=== PATIENT | female | born 1975 | race American Indian/Alaskan Native ===

== ENCOUNTER 2017-03-26 14:21 | Emergency (ER) | payer MEDICAID ==
[2017-03-26 14:37] VITALS: TEMP 98; BMI 32.4
[2017-03-26] MEDS ORDERED: Labetalol 5 mg/ml Inj 20ML IV STA ×2 (14:52→15:54)
--- NOTE | 2017-03-26 15:00 | ED PDOC ---
Arrival/HPI - General Time Seen by Provider: 03/26/17 14:34 Historian: Patient - History of Present Illness Narrative History of Present Illness (Text): 03/26/17 14:54 This 41 yo s/p x 8 days ago, presents to this ED c/o b/l leg swelling x 7 days. Patient stated she develioped a chest pain x 3 days ago, described as pressure. Patient saw her [employer] this morning, and she was found to be hypertensive. Time/Duration: Other (see HPI) Context: Home Past Medical History - Provider Review Nursing Documentation Reviewed: Yes - Infectious Disease Hx of Infectious Diseases: None - Tetanus Immunization Tetanus Immunization: Unknown - Cardiac Hx Cardiac Disorders: No - Pulmonary Hx Asthma: Yes - Neurological Hx Neurological Disorder: No - HEENT Hx HEENT Disorder: No - Renal Hx Renal Disorder: No - Endocrine/Metabolic Hx Endocrine Disorders: No - Hematological/Oncological Hx Blood Disorders: No - Integumentary Hx Dermatological Disorder: No - Musculoskeletal/Rheumatological Hx Musculoskeletal Disorders: No - Gastrointestinal Hx Gastrointestinal Disorders: No - Genitourinary/Gynecological Hx Genitourinary Disorders: No - Psychiatric Hx Psychophysiologic Disorder: No Hx Depression: No Hx Emotional Abuse: No Hx Physical Abuse: No Hx Substance Use: No - Past Surgical History Past Surgical History: Non-Contributing - Surgical History Other/Comment: nasal polyps - Anesthesia Hx Anesthesia: Yes Hx Anesthesia Reactions: No Hx Malignant Hyperthermia: No - Suicidal Assessment Feels Threatened In Home Enviroment: No Family/Social History - Physician Review Nursing Documentation Reviewed: Yes Family/Social History: No Known Family HX Smoking Status: Light Smoker < 10 Cigarettes Daily Hx Alcohol Use: Yes Hx Substance Use: No Hx Substance Use Treatment: No Allergies/Home Meds Allergies/Adverse Reactions: Allergies No Known Allergies Allergy (Verified 03/26/17 15:45) Home Medications: Home Meds Medication Instructions Recorded Confirmed Cephalexin [cephalexin] 500 mg PO QID 03/26/17 03/26/17 Ferrous Sulfate [Iron] 325 mg PO DAILY 03/26/17 03/26/17 Ibuprofen [Motrin] 600 mg PO PRN PRN 03/26/17 03/26/17 oxyCODONE [oxyCODONE Immediate 5 mg PO PRN PRN 03/26/17 03/26/17 Release Tab] Review of Systems - Review of Systems Constitutional: Normal. absent: Fatigue, Weight Change, Fevers Eyes: Normal ENT: Normal Respiratory: SOB. absent: Cough, Sputum, Wheezing Cardiovascular: Chest Pain, Edema, JOHNSON. absent: Palpitations, Calf Pain, Orthopnea, Syncope Gastrointestinal: Normal. absent: Abdominal Pain, Nausea, Vomiting Genitourinary Female: Normal. absent: Dysuria, Frequency, Hematuria Musculoskeletal: Other (B/L lower leg edema, +2). absent: Arthralgias, Back Pain, Neck Pain, Joint Swelling, Myalgias Skin: Normal Neurological: Normal Endocrine: Normal Hemo/Lymphatic: Normal Psychiatric: Normal Physical Exam Vital Signs Temp Pulse Resp BP Pulse Ox 03/26/17 15:54 74 20 175/80 H 98 03/26/17 14:36 98 F 60 18 172/90 H 100 Temperature: Afebrile Blood Pressure: Normal Pulse: Regular Respiratory Rate: Normal Appearance: Positive for: Well-Appearing, Non-Toxic, Comfortable Pain Distress: None Mental Status: Positive for: Alert and Oriented X 3 - Systems Exam Head: Present: Atraumatic, Normocephalic Pupils: Present: PERRL Extroacular Muscles: Present: EOMI Conjunctiva: Present: Normal Mouth: Present: Moist Mucous Membranes Neck: Present: Normal Range of Motion Respiratory/Chest: Present: Clear to Auscultation, Good Air Exchange. No: Respiratory Distress, Accessory Muscle Use, Wheezes, Retracting, Rhonchi Cardiovascular: Present: Regular Rate and Rhythm, Normal S1, S2. No: Murmurs Abdomen: Present: Normal Bowel Sounds. No: Tenderness, Distention, Peritoneal Signs Back: Present: Normal Inspection Upper Extremity: Present: Normal Inspection, Normal ROM, NORMAL PULSES, Neurovascularly Intact, Capillary Refill < 2s. No: Cyanosis, Edema Lower Extremity: Present: Normal Inspection, NORMAL PULSES, Normal ROM, Neurovascularly Intact, Capillary Refill < 2 s. No: Edema, CALF TENDERNESS Neurological: Present: GCS=15, CN II-XII Intact, Speech Normal, Motor Func Grossly Intact, Normal Sensory Function, Normal Cerebellar Funct, Gait Normal, Memory Normal Skin: Present: Warm, Dry, Normal Color. No: Rashes Psychiatric: Present: Alert, Oriented x 3, Normal Insight, Normal Concentration Medical Decision Making ED Course and Treatment: 03/26/17 16:11 Dr. Felix stated he spoke with Dr. Colmenares ER physician who accepted transfer. Re-evaluation Time: 16:12 Reassessment Condition: Re-examined, Improving,but remains with symptoms - Lab Interpretations Lab Results: 03/26/17 15:30 03/26/17 15:30 Lab Results 03/26/17 15:30: Sodium 140, Potassium 3.8, Chloride 107, Carbon Dioxide 27, Anion Gap 10, BUN 8, Creatinine 0.9, Est GFR ( Amer) > 60, Est GFR (Non- Af Amer) > 60, Random Glucose 78, Uric Acid 7.0 H, Calcium 8.8, Total Bilirubin 0.6, AST 27, ALT 30, Alkaline Phosphatase 84, Lactate Dehydrogenase 666, Total Creatine Kinase 187, Troponin I Pending, NT-Pro-B Natriuret Pep Pending, Total Protein 6.5, Albumin 3.2, Globulin 3.3, Albumin/Globulin Ratio 1.0 L 03/26/17 15:30: WBC 8.2, RBC 3.19 L, Hgb 9.9 L, Hct 30.1 L, MCV 94.4, MCH 31.0, MCHC 32.9, RDW 13.6, Plt Count 309, MPV 9.6, Gran % 56.3, Lymph % (Auto) 33.1, [place] % (Auto) 7.0 H, Eos % (Auto) 3.1, Baso % (Auto) 0.5, Gran # 4.60, Lymph # 2.7, [place] # 0.6, Eos # 0.3, Baso # 0.04 - RAD Interpretation Radiology Orders: 03/26/17 14:48 ANGIO CHEST PE PROTOCOL [CT] Stat - EKG Interpretation Interpreted by ED Physician: Yes (Sinus rhythm with 1st degree AV block @[address] changes) Type: 12 lead EKG Comparison: No previous EKG avail. - Medication Orders Current Medication Orders: Discontinued Medications Magnesium Sulfate 2 gm/ Sodium (Chloride) 104 mls @ 102 mls/hr IVPB ONCE ONE Stop: 03/26/17 16:36 Last Admin: 03/26/17 16:06 Dose: Magnesium Sulfate 2 gm/ Sodium (Chloride) 104 mls @ 102 mls/hr IVPB ONCE ONE Stop: 03/26/17 16:36 Last Admin: 06/05/17 16:06 Dose: Magnesium Sulfate 2 gm/ Sodium (Chloride) 104 mls @ 400 mls/hr IVPB ONCE ONE Stop: 03/26/17 15:50 Last Admin: 03/26/17 15:45 Dose: 400 mls/hr Magnesium Sulfate 2 gm/ Sodium (Chloride) 104 mls @ 400 mls/hr IVPB ONCE ONE Stop: 03/26/17 15:50 Last Admin: 03/26/17 16:01 Dose: 400 mls/hr Labetalol HCl (Trandate) 10 mg IV STAT STA Stop: 03/26/17 15:55 Last Admin: 03/26/17 15:54 Dose: 10 mg Disposition/Present on Arrival - Present on Arrival Any Indicators Present on Arrival: No History of DVT/PE: No History of Uncontrolled Diabetes: No Urinary Catheter: No History Surgical Site Infection Following: None - Disposition Have Diagnosis and Disposition been Completed?: Yes Diagnosis: Pre-eclampsia in period Disposition: Transfer [facility] Disposition Time: 16:12 Patient Problems: Current Active Problems Problem Status Onset Pre-eclampsia in period Acute Condition: STABLE Referrals: PCP,NO [Primary Care Provider] - Follow up with primary
[2017-03-26] MEDS ORDERED: Magnesium Sulfate 2 GM in Sodium Chloride 0.9% 100 ML IVPB ONE ×4 (15:35)
[2017-03-26 15:54] LABS: ADD MANUAL DIFF? NO
[2017-03-26 15:56] LABS: BASO # 0.04 K/mm3 (0.0-2.0); BASO % 0.5 % (0.0-3.0); EOS # 0.3 (0.0-0.7); EOS % 3.1 % (1.5-5.0); GRAN % 56.3 % (50.0-68.0); HEMATOCRIT 30.1 % (36.0-48.0); LYMPH # 2.7 (1.2-3.4); LYMPH % 33.1 % (22.0-35.0); MEAN CELL VOLUME 94.4 fL (80.0-105.0); MEAN CORPUSCULAR HGB CONC 32.9 g/dl (31.0-37.0); MEAN PLATELET VOLUME 9.6 fl (7.0-11.0); MONO # 0.6 (0.1-0.6); PLATELET COUNT 309 10^3/uL (120.0-450.0); RED CELL DISTRIBUTION WIDTH 13.6 % (11.5-14.5); WHITE BLOOD COUNT 8.2 10^3/ul (4.5-11.0)
[2017-03-26 16:11] LABS: ALKALINE PHOSPHATASE 84 U/L (38-133); ALT/SGPT 30 U/L (7-56); AST/SGOT 27 U/L (15-39); BILIRUBIN,TOTAL 0.6 mg/dL (0.2-1.3); BLOOD UREA NITROGEN 8 mg/dL (7-21); CALCIUM 8.8 mg/dL (8.4-10.5); CARBON DIOXIDE 27 mmol/L (21-33); CHLORIDE 107 mmol/L (98-107); GFR AFRICAN-AMERICAN > 60; GLUCOSE,RANDOM 78 mg/dL (70-110); POTASSIUM 3.8 mmol/L (3.6-5.0); SODIUM 140 mmol/L (132-148); TOTAL PROTEIN 6.5 g/dL (5.8-8.3)
[2017-03-26 16:23] LABS: TROPONIN I < 0.01 ng/mL
[2017-03-26 16:59] VITALS: RESP 18; O2SAT 99
[2017-03-26 17:34] VITALS: BP 150/80; PULSE 62
--- NOTE | 2017-03-27 09:03 | RAD ---
HISTORY: admission COMPARISON: No prior. FINDINGS: LUNGS: No active pulmonary disease. PLEURA: No significant pleural effusion identified, no pneumothorax apparent. CARDIOVASCULAR: Normal. OSSEOUS STRUCTURES: No significant abnormalities. VISUALIZED UPPER ABDOMEN: Normal. OTHER FINDINGS: None. IMPRESSION: No active disease.
--- NOTE | 2017-03-27 09:38 | CARD ---
APPROVED REPORT EKG Measurement Heart [id number] <Conclusion> Sinus rhythm with 1st degree AV block
== END 2017-03-26 17:30 | disposition short-term general hospital (02) ==
LOC: ED 14:21
DX: O14.95 Unspecified pre-eclampsia, complicating the puerperium (principal)
CPT/HCPCS: 71010; 80053; 82550; 83615; 83880; 84484; 84550; 85025; 93005; 96374; 96375; 99283; J3475

== ENCOUNTER 2018-11-25 14:41 | Emergency (ER) | payer MEDICAID ==
[2018-11-25 14:42] VITALS: BMI 32.4
[2018-11-25 15:01] VITALS: PULSE 60; TEMP 98.4; O2SAT 100
[2018-11-25] MEDS ORDERED: Albuterol-Ipratrop 3 mg / 0.5 (3 ml) UD IH STA (15:44)
--- NOTE | 2018-11-25 16:56 | ED PDOC ---
Arrival/HPI - General Chief Complaint: Chest Pain Time Seen by Provider: 11/25/18 15:01 Historian: Patient - History of Present Illness Narrative History of Present Illness (Text): 11/25/18 15:43 43 y/o F, with past medical history of preeclampsia, presents to the ED for evaluation of chest pain since 48 hours. Patient describes the pain as non- radiating chest tightness localized to the left side with pain to palpation. Patient informs associated intermittent cough as well as dizziness. Patient denies taking anything for pain at home. Patient denies any other associated somatic complaints. Patient denies any fevers, chills, headache, shortness of breath, dyspnea on exertion, abdominal pain, nausea, vomiting, diarrhea, back pain, neck pain, or any other complaints. Patient denies any OCP. Patient admits to smoking 2 packs of cigarettes per week. Patient denies any recent travel or history of malignancy. Time/Duration: Other (48 hours) Symptom Onset: Gradual Symptom Course: Unchanged Activities at Onset: Light Context: Home Past Medical History - Provider Review Nursing Documentation Reviewed: Yes - Infectious Disease Hx of Infectious Diseases: None - Tetanus Immunization Tetanus Immunization: Unknown - Reproductive Currently : No - Cardiac Hx Cardiac Disorders: No - Pulmonary Hx Asthma: Yes - Neurological Hx Neurological Disorder: No - HEENT Hx HEENT Disorder: No - Renal Hx Renal Disorder: No - Endocrine/Metabolic Hx Endocrine Disorders: No - Hematological/Oncological Hx Blood Disorders: No - Integumentary Hx Dermatological Disorder: No - Musculoskeletal/Rheumatological Hx Musculoskeletal Disorders: No - Gastrointestinal Hx Gastrointestinal Disorders: No - Genitourinary/Gynecological Hx Genitourinary Disorders: No - Psychiatric Hx Depression: No Hx Substance Use: No - Past Surgical History Past Surgical History: Non-Contributing - Surgical History Other/Comment: nasal polyps - Anesthesia Hx Anesthesia: Yes Hx Anesthesia Reactions: No Hx Malignant Hyperthermia: No - Suicidal Assessment Feels Threatened In Home Enviroment: No Family/Social History - Physician Review Nursing Documentation Reviewed: Yes Family/Social History: No Known Family HX Smoking Status: Light Smoker < 10 Cigarettes Daily Hx Alcohol Use: Yes Hx Substance Use: No Hx Substance Use Treatment: No Allergies/Home Meds Allergies/Adverse Reactions: Allergies No Known Allergies Allergy (Verified 03/26/17 15:45) Home Medications: Home Meds Medication Instructions Recorded Confirmed RX: Cephalexin [Keflex] 500 mg PO QID 03/26/17 03/26/17 RX: Ferrous Sulfate [Iron] 325 mg PO DAILY 03/26/17 03/26/17 RX: Ibuprofen [Motrin Tab] 600 mg PO PRN PRN 03/26/17 03/26/17 RX: oxyCODONE [oxyCODONE Immediate 5 mg PO PRN PRN 03/26/17 03/26/17 Release Tab] Review of Systems - Physician Review All systems were reviewed & negative as marked: Yes - Review of Systems Constitutional: absent: Fevers Respiratory: Cough. absent: SOB Cardiovascular: Chest Pain. absent: JOHNSON Gastrointestinal: absent: Abdominal Pain, Diarrhea, Nausea, Vomiting Genitourinary Female: absent: Dysuria, Urine Output Changes Musculoskeletal: absent: Back Pain, Neck Pain Skin: absent: Rash Neurological: absent: Headache, Dizziness Psychiatric: absent: Anxiety Physical Exam Vital Signs Reviewed: Yes Vital Signs Temp Pulse Resp BP Pulse Ox 11/25/18 14:42 98.4 F 60 18 134/85 100 Temperature: Afebrile Blood Pressure: Normal Pulse: Regular Respiratory Rate: Normal Appearance: Positive for: Well-Appearing, Non-Toxic, Comfortable Pain Distress: None Mental Status: Positive for: Alert and Oriented X 3 - Systems Exam Head: Present: Atraumatic, Normocephalic Pupils: Present: PERRL Extroacular Muscles: Present: EOMI Conjunctiva: Present: Normal Neck: Present: Normal Range of Motion Respiratory/Chest: Present: Clear to Auscultation, Good Air Exchange. No: Respiratory Distress, Accessory Muscle Use Cardiovascular: Present: Regular Rate and Rhythm, Normal S1, S2. No: Murmurs Abdomen: No: Tenderness, Distention, Peritoneal Signs Back: Present: Normal Inspection Upper Extremity: Present: Normal Inspection. No: Cyanosis, Edema Lower Extremity: Present: Normal Inspection. No: Edema Neurological: Present: GCS=15, CN II-XII Intact, Speech Normal Skin: Present: Warm, Dry, Normal Color. No: Rashes Psychiatric: Present: Alert, Oriented x 3, Normal Insight, Normal Concentration Medical Decision Making ED Course and Treatment: 11/25/18 15:43 Impression: 43 year old female presents to the ED for evaluation of chest pain since pas 48 hours. Differential Diagnosis included but are not limited to: -- ACS -- PE -- PNA Plan: -- Labs -- CXR -- Albuterol -- Solumedrol -- Urinalysis -- Reassess and disposition Prior Visits: Notes and results from previous visits were reviewed. Progress Notes: 11/25/18 17:35 Patient admantly refused blood work at this time. She understands she has not had a full workup and states she will return to the ER should symptoms persist. Scripts provided. She is stable for discharge. - RAD Interpretation Radiology Orders: 11/25/18 15:43 CHEST PORTABLE [RAD] Stat - Medication Orders Current Medication Orders: Discontinued Medications Albuterol/Ipratropium (Duoneb 3 Mg/0.5 Mg (3 Ml) Ud) 3 ml IH STAT STA Stop: 11/25/18 15:45 Last Admin: 11/25/18 16:20 Dose: 3 ml Prednisone (Prednisone Tab) 60 mg PO STAT ONE Stop: 11/25/18 15:45 Last Admin: 11/25/18 16:19 Dose: 60 mg - Scribe Statement The provider has reviewed the documentation as recorded by the Scribe Niraj Hopkins. All medical record entries made by the Scribe were at my direction and personally dictated by me. I have reviewed the chart and agree that the record accurately reflects my personal performance of the history, physical exam, medical decision making, and the department course for this patient. I have also personally directed, reviewed, and agree with the discharge instructions and disposition. Disposition/Present on Arrival - Present on Arrival Any Indicators Present on Arrival: No History of DVT/PE: No History of Uncontrolled Diabetes: No Urinary Catheter: No History of Decub. Ulcer: No History Surgical Site Infection Following: None - Disposition Have Diagnosis and Disposition been Completed?: Yes Diagnosis: Bronchitis Disposition: HOME/ ROUTINE Disposition Time: 17:37 Patient Plan: Discharge Condition: FAIR Discharge Instructions (ExitCare): Acute Bronchitis, Adult (DC), Chronic Bronchitis (DC) Print Language: MALTESE Additional Instructions: All medical record entries made by the Scribe were at my direction and personally dictated by me. I have reviewed the chart and agree that the record accurately reflects my personal performance of the history, physical exam, medical decision making, and the department course for this patient. I have also personally directed, reviewed, and agree with the discharge instructions and disposition. Please follow up with your PCP in 3-5 days Take medications as prescribed. If symptoms worsen(shortness of breath, fevers, chills, nausea, vomiting), return to the Emergency Department immediately. Prescriptions: Albuterol Sulfate [Ventolin Hfa] 1 puff IH Q6H #200 ml Azithromycin [Z-Luis] 250 mg PO DAILY #6 tab Methylprednisolone [Medrol Dose Pack (21 tabs)] 4 mg PO DAILY #21 mg Referrals: Katelin Wong MD [Primary Care Provider] - Follow up with primary Forms: [id number] (Bel[place]ian)
[2018-11-25 18:07] VITALS: BP 133/75; RESP 16
--- NOTE | 2018-11-25 23:52 | CARD ---
APPROVED REPORT Date of service: 11/25/2018 EKG Measurement Heart [id number] <Conclusion> Sinus rhythm with 1st degree AV block Nonspecific T wave abnormality Abnormal ECG
--- NOTE | 2018-11-26 08:41 | RAD ---
Date of service: 11/25/2018 HISTORY: chest pain COMPARISON: 03/26/2017 FINDINGS: LUNGS: No active pulmonary disease. PLEURA: No significant pleural effusion identified, no pneumothorax apparent. CARDIOVASCULAR: No aortic atherosclerotic calcification present. Mild cardiomegaly no pulmonary vascular congestion. OSSEOUS STRUCTURES: No significant abnormalities. VISUALIZED UPPER ABDOMEN: Normal. OTHER FINDINGS: None. IMPRESSION: No active disease.
== END 2018-11-25 18:05 | disposition home or self-care (01) ==
LOC: ED 14:41
DX: J40 Bronchitis, not specified as acute or chronic (principal); F17.210 Nicotine dependence, cigarettes, uncomplicated